=== PATIENT | female | born 1995 | race Caucasian/White ===

== ENCOUNTER 2016-10-21 22:13 | Emergency (ER) | payer SELFPAY ==
[2016-10-21 23:56] VITALS: O2SAT 96
--- NOTE | 2016-10-22 00:04 | ED.PDOC ---
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 She wants a test. Hx of PCOS. No other complaints. Timing/Duration: unsure Severity: mild Improving Factors: nothing Worsening Factors: nothing Associated Symptoms: denies symptoms Allergies/Adverse Reactions: Allergies NO KNOWN ALLERGY Allergy (Verified 10/29/15 21:34) Review of Systems - Review of Systems Constitutional: States: no symptoms reported EENTM: States: no symptoms reported Respiratory: States: no symptoms reported Cardiology: States: no symptoms reported Gastrointestinal/Abdominal: States: no symptoms reported Genitourinary: States: see HPI Musculoskeletal: States: no symptoms reported Skin: States: no symptoms reported Neurological: States: no symptoms reported Endocrine: States: no symptoms reported Hematologic/Lymphatic: States: no symptoms reported Past Medical History (General) - Patient Medical History Hx Asthma: No Hx Hypertension: Yes Hx Thyroid Disease: Yes Surgical History: tonsillectomy - Vaccination History Hx Tetanus, Diphtheria Vaccination: No Hx Influenza Vaccination: No Hx Pneumococcal Vaccination: No - Social History Hx Tobacco Use: Yes - occ Hx Alcohol Use: Yes - occ Hx Substance Use: No Hx Substance Use Treatment: No - Activities of Daily Living Hospice Agency (if applicable):: None - Female History Patient is a Female of Child Bearing Age (10 -59 yrs old): No Patient : - Patient stated that she is 5 days late on her period Family Medical History - Family History Mother Family History: Unknown Living Status: Still Living Physical Exam - Physical Exam General Appearance: Alert Respiratory: lungs clear Cardiovascular/Chest: regular rate, rhythm Gastrointestinal/Abdominal: normal bowel sounds, non tender, soft Progress - Progress Progress: 10/22/16 00:03 Urine HCG negative. Departure - Departure Clinical Impression: test negative Disposition: Discharge to Home or Self Care Condition: Good Departure Forms: ED Discharge - Pt. Copy, Patient Portal Self Enrollment Diet: resume usual diet Activity: increase activity as tolerated Referrals: Alvina Riggs NP [Primary Care Provider] - 1-2 Weeks Additional Instructions: Follow up with your regular doctor regarding your PCOS.
[2016-10-22 00:31] VITALS: BP 165/89; TEMP 99.7
== END 2016-10-22 00:05 | disposition home or self-care (01) ==
LOC: ER 22:13
DX: Z32.02 Encounter for pregnancy test, result negative (principal); Z87.891 Personal history of nicotine dependence

== ENCOUNTER → 2016-11-03 | Outpatient (CLI) | payer OTHER | END | disposition home or self-care (01) | LOC: YCFC.O 09:20 | PROVIDERS: ATTEND Nurse Practitioner Family | DX: D64.9 Anemia, unspecified (principal); Z13.220 Encounter for screening for lipoid disorders; E28.2 Polycystic ovarian syndrome; E04.9 Nontoxic goiter, unspecified ==